=== PATIENT | male | born 1995 | race Caucasian/White ===

== ENCOUNTER 2020-09-10 00:54 | Emergency (ER) | payer BC ==
[2020-09-10 02:21] LABS: HEMOGLOBIN 16.3 gm/dl (14.0-17.5); RED BLOOD COUNT 5.45 M/UL (4.20-5.50); WHITE BLOOD COUNT 12.2 K/UL (4.5-11.0)
[2020-09-10 02:37] LABS: BUN/CREATININE RATIO 9 (0-10)
== END 2020-09-10 06:00 | disposition home or self-care (01) ==
LOC: ER1 00:54
PROVIDERS: Emergency Medicine
DX: J02.9 Acute pharyngitis, unspecified (principal); R65.10 Systemic inflammatory response syndrome (SIRS) of non-infectious origin without acute organ dysfunction; Z20.822 Contact with and (suspected) exposure to COVID-19
CPT/HCPCS: 0240U; 71045; 80053; 83605; 85025; 86403; 87040; 87081; 87880; 96372; 96374; 96375; 99283; J0561; J1100; J1885; J7030